=== PATIENT | female | born 1950 | race African-American/Black ===

== ENCOUNTER 2016-10-01 19:37 | Inpatient (IN) | payer OTHER ==
--- NOTE | ~2016-10-01 | DS ---
Discharge Summary [facility] [address] [place]. [address] NAME: NIRAV MAHMOOD : 50 STATUS : DIS IN PAT#: [id number] AGE: 66 ADM/REG DATE : 10/01/16 MR#: [id number] REPORT SERV DATE: 10/05/16 DICTATED BY: FRANCISCO EL DATE: 10/03/16 REPORT STATUS : Draft TRANSCRIBED BY: MODL DATE: 10/03/16 ADMISSION DATE: 10/01/2016 DISCHARGE DATE: 10/03/2016 PRINCIPAL DIAGNOSIS: Acute on chronic diastolic congestive heart failure with cor pulmonale, anasarca. SECONDARY DIAGNOSES: Uncontrolled hypertension, chronic kidney disease stage 4, morbid obesity, atrial fibrillation. HISTORY OF PRESENT ILLNESS: Please see Dr. Gonzalez's dictation of 10/01/2016. HOSPITAL COURSE: Admitted with volume overload, found to be in acute CHF with a normal ejection fraction. The patient received a Bumex infusion with a great deal of volume loss. Medications were adjusted including the discontinuation of Norvasc and change of Lasix to Demadex for enhanced absorption and instructed on elevating her legs as opposed to keeping her legs dependent which she has been doing at home. Bin stockings were provided. Hydralazine was increased. She would follow up with Dr. Amado Chavarria of Nephrology, Dr. Morales of cardiology, and Dr. Livan Hawley, her primary care provider. She will also continue Mevacor, Neurontin, Eliquis, Zoloft. Greater than 30 minutes were spent in care of this patient on discharge planning on discharge day. DICTATED BY: Donald Jones/YUN Francisco El M.D. / [id number] CC: Donald Jones M.D. Vinay Deep Madan, MD Rohit Gupta, M.D.
--- NOTE | ~2016-10-01 | HP ---
History And Physical [place] [id number] [place]. [address] NAME: NIRAV MAHMOOD : 50 STATUS : ADM Raul PAT#: [id number] AGE: 66 ADM/REG DATE : 10/01/16 MR#: [id number] REPORT SERV DATE: 10/01/16 DICTATED BY: LEOLA PINK DATE: 10/01/16 REPORT STATUS : Draft TRANSCRIBED BY: MODL DATE: 10/01/16 DATE OF ADMISSION: 10/01/2016 CHIEF COMPLAINT: A 66-year-old female presenting with shortness of breath and weakness. HISTORY OF PRESENTING ILLNESS: The patient's history was obtained through an interview with the patient, coupled with review of [facility] and [facility] medical records. For the last week, the patient has been having "a cold." She went to see her primary care physician about a week ago, was placed on prednisone, but has not had really any relief from her breathing problems. Over the last 24 hours, her shortness of breath has become quite debilitating. She describes it as dyspnea on exertion in which she cannot even take a few steps now without gasping for breath. She states that she cannot complete a full sentences without becoming short of breath. She has had increasing lower extremity edema and heaviness in her legs. She describes a nonproductive cough, increased wheezing. She states "I felt like something was closing off" in her throat, but there has been no swelling of her tongue or her neck. No nausea or vomiting. No lightheadedness. No change of bowel or bladder habit. She describes slight chest discomfort exacerbated by coughing, a tightness across the middle of her chest, up to an 8/10 severity. REVIEW OF SYSTEMS: Otherwise, a 14-point review of systems was obtained and was negative. PAST MEDICAL HISTORY: 1. Chronic kidney disease stage 4. Baseline creatinine of 2.6 to 3.3. 2. Diastolic congestive heart failure. 3. Stroke, 1990, resulting in right-sided weakness and then early in 2016 resulting in left-sided weakness. 4. Morbid obesity with body mass index of 46. 5. Atrial fibrillation, on Eliquis and aspirin. 6. Pneumonia. 7. COPD/asthma, on home oxygen. 8. Hypertension. 9. Elevated cholesterol. 10.Fatty liver disease. 11.Depression. 12.LEYDI inhibitor-induced angioedema. 13.Dysphagia, seen by Dr. Wisdom. 14.Proteinuria. History And Physical [address] [address] NAME: NIRAV MAHMOOD : 50 STATUS : ADM Raul PAT#: [id number] AGE: 66 ADM/REG DATE : 10/01/16 MR#: [id number] REPORT SERV DATE: 10/01/16 DICTATED BY: LEOLA PINK DATE: 10/01/16 REPORT STATUS : Draft TRANSCRIBED BY: YUN DATE: 10/01/16 15.Fibromyalgia. 16.Gout. PAST SURGICAL HISTORY: 1. Hysterectomy with oophorectomy. 2. Appendectomy. 3. Right knee surgery. 4. Left ankle surgery. ALLERGIES: PENICILLIN, IBUPROFEN, AND LISINOPRIL. SOCIAL HISTORY: The patient has never been a smoker. Does not drink alcohol. She has had secondhand tobacco exposure though. 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 She became a in 2016. She is seen by [facility]. She has no children. She ambulates with a cane. FAMILY HISTORY: Diabetes. Mother at 50 years of age of heart disease. Father at 67 years of age of lung cancer. CURRENT MEDICATIONS: Include Norvasc 5 mg p.o. b.i.d., Eliquis 2.5 mg p.o. b.i.d., aspirin 81 mg p.o. daily, Coreg 12.5 mg p.o. b.i.d., Lasix 60 mg every morning, Neurontin 300 mg at bedtime, guaifenesin, hydralazine 50 mg p.o. b.i.d., sliding-scale insulin, Toujeo insulin 3 units at bedtime, Mevacor 20 mg p.o. daily, Robaxin 500 mg as needed, Percocet p.r.n., Protonix 40 mg p.o. daily, prednisone taper, Zoloft 50 mg at bedtime. PHYSICAL EXAMINATION: VITAL SIGNS: Temperature 98.2, pulse 68, blood pressure 172/103, respiratory rate 23, O2 saturation 97% on 2 L nasal cannula. GENERAL: A pleasant, cooperative female, but she describes distress from underlying shortness of breath and cough. HEENT: Pupils equal, round, and reactive to light. No conjunctival pallor. No scleral icterus. Nares are patent. Oropharynx is clear of obstruction. Moist mucous membranes. NECK: Trachea midline. No thyromegaly. LYMPH: No cervical lymphadenopathy. No supraclavicular lymphadenopathy. RESPIRATORY: The patient has diminished breath sounds at the base of lungs with prominent wet rales dependently. In the upper airways, there are scattered wheezes. The patient has a labored respiratory effort. CARDIOVASCULAR: Regular rate and rhythm. No murmurs, rubs, or gallops. The patient does have deeply pitting lower extremity edema extending up to the thighs symmetrically. ABDOMEN: Central pattern of morbid obesity. Nontender throughout though. No hepatosplenomegaly. DERMATOLOGICAL: Warm and dry extremities. No pallor, no cyanosis. PSYCHIATRIC: Normal affect. Good mood. Alert and oriented x3. LABORATORY DATA: Brain natriuretic peptide 416. Troponin negative. White blood cell count 8.5, hemoglobin 11, hematocrit 33, platelets 193. Sodium 147, potassium 4.0, chloride 113, History And Physical [address] [address] NAME: NIRAV MAHMOOD : 50 STATUS : ADM Raul PAT#: [id number] AGE: 66 ADM/REG DATE : 10/01/16 MR#: [id number] REPORT SERV DATE: 10/01/16 DICTATED BY: LEOLA PINK DATE: 10/01/16 REPORT STATUS : Draft TRANSCRIBED BY: MODL DATE: 10/01/16 bicarb 28, BUN 45, creatinine 2.63, glucose 118. ABG demonstrates a pH of 7.39, a PaCO2 of 42, a PaO2 of 109, a bicarb of 24 on 2 L nasal cannula. ASSESSMENT AND PLAN: 1. Diastolic congestive heart failure exacerbation, but would like to recheck an echocardiogram to define function. Place on IV Bumex drip for now. Nitro paste, beta- sergio. Unable to use LEYDI inhibitor or ARB secondary to angioedema history. 2. Acute bronchitis. Place on IV Solu-Medrol, Duo nebulizers, doxycycline. 3. Chronic kidney disease stage 4. 4. Paroxysmal atrial fibrillation, on Eliquis. Check telemetry. 5. Late effects of stroke. KPL/MODL Leola Pink M.D. / [id number] CC: Donald Jones M.D.
--- NOTE | ~2016-10-01 | CN ---
Consultation Report [facility] [address] [place]. [address] NAME: NIRAV MAHMOOD : 50 STATUS : ADM Raul PAT#: [id number] AGE: 66 ADM/REG DATE : 10/01/16 MR#: [id number] REPORT SERV DATE: 10/02/16 DICTATED BY: FESTUS DIETZ JR. DATE: 10/02/16 REPORT STATUS : Draft TRANSCRIBED BY: MODL DATE: 10/02/16 CARDIOLOGY CONSULT DATE OF CONSULTATION: 10/02/2016 FORMER [employer] SALES EXECUTIVE: Dr. Jeremy Kothari. APPOINTMENT OFFICE: Dr. Andrew [facility], 10/02/2016. REASON FOR CONSULT: Regarding CHF management. HISTORY OF PRESENT ILLNESS: A 66-year-old morbidly obese, female is here with worsening shortness of breath with some exertional chest tightness, unclear why she decompensated, interstitial edema present on chest x-ray with BNP rising from 416 yesterday to 515 today. Low-dose Bumex drip. Weight same as admission. Two troponins negative. BUN and creatinine 50 and 2.5 respectively. Past medical history of hypertensive cardiovascular disease with diastolic left ventricular dysfunction with left atrial enlargement at 4.5 in the past with preserved ejection fraction. History of paroxysmal atrial fibrillation on Eliquis anticoagulation. No clinical recurrence recently. Coronary risk factors are present including hypertension, positive family history of diabetes mellitus type 2, insulin dependent, hyperlipidemia treated. She reports having an unremarkable cardiac catheterization several years ago, she cannot recall details. ALLERGIES: SIGNIFICANT ALLERGIES INCLUDE ANGIOEDEMA WITH LEYDI INHIBITOR. SHE HAS NEVER TRIED AN ARB. MEDICATIONS: Home medication list reviewed. 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 No tobacco, alcohol, or illicit drugs. FAMILY HISTORY: Positive family history, mother of myocardial infarction at age 57. PHYSICAL EXAMINATION: VITAL SIGNS: Blood pressure 168 to 175 over 73 to 90, pulse is 68 and regular, respirations 20, afebrile. HEENT: No xanthelasma. NECK: Internal jugular venous distention at 30 degrees, no thyromegaly, no carotid bruit. LUNGS: A few basilar crackles, otherwise clear. No wheezes today. COR: Soft systolic murmur. Increased pulmonic component of second heart sound. ABD: Soft, nontender, no hepatosplenomegaly, no mass. EXT: 1+ edema bilaterally. Consultation Report [facility] [address] [place]. [address] NAME: NIRAV MAHMOOD : 50 STATUS : ADM Raul PAT#: [id number] AGE: 66 ADM/REG DATE : 10/01/16 MR#: [id number] REPORT SERV DATE: 10/02/16 DICTATED BY: FESTUS DIETZ JR. DATE: 10/02/16 REPORT STATUS : Draft TRANSCRIBED BY: YUN DATE: 10/02/16 MS: Back without spine or costovertebral angle tenderness. NEURO: Symmetric findings. DISCUSSION: Exacerbation of chronic congestive heart failure, previously termed diastolic CHF. Unclear etiology for exacerbation. She describes exertional chest discomfort consistent with angina and has not had evaluation for myocardial ischemia in several years according to her history. Multiple coronary risk factors. She was fed some eggs early this morning. We will keep her n.p.o. and try to get a PET scan late this afternoon. Holiday weekend coming out. 1. If ejection fraction is low, she would qualify for hydralazine isosorbide dinitrate treatment of her heart failure. 2. If positive for ischemia, we will hold her Eliquis and proceed with Wednesday coronary arteriogram, possible PCI. Probable radial access. Thank you for this consultation. LUPE/YUN Festus Dietz Jr., M.D. / [id number] CC: Donald Vickers M.D.
[2016-10-01 18:41] LABS: ALLENS TEST Pos; BE (BASE EXCESS) -0.6 MEQ/L (0 +/- 2.5); HCO3 (ACTUAL BICARBONATE) 24.5 MEQ/L (23-27); INSTRUMENT SERIAL # 8087; PCO2 (CO2 TENSION) 42 MMHG (35-45); PO2 (O2 TENSION) 109 MMHG (79-93); SAMPLE Arterial; pH 7.39 (7.37-7.43)
[2016-10-01 19:02] LABS: BASOPHILS 0.2 %; BASOPHILS ABSOLUTE 0.02 10/3/uL (0.0-0.16); EOSINOPHILS 0.1 %; EOSINOPHILS ABSOLUTE 0.01 10/3/uL (0.0-0.53); HEMATOCRIT 32.9 % (36.0-48.0); HEMOGLOBIN 10.6 g/dL (12.0-16.0); IMMATURE GRANULOCYTES 0.6 %; IMMATURE GRANULOCYTES ABSOLUTE 0.05 10/3/uL (0.0-0.11); LYMPHOCYTES 7.9 %; LYMPHOCYTES ABSOLUTE 0.67 10/3/uL (0.67-4.30); MANUAL DIFF NO %; MEAN CORPUS HGB CONC 32.2 g/dL (32.0-36.0); MEAN CORPUSCULAR HEMOGLOB 28.4 pg (26.0-34.0); MEAN CORPUSCULAR VOLUME 88.2 fL (80-100); MEAN PLATELET VOLUME 11.6 fL (9.2-13.0); MONOCYTES 3.7 %; MONOCYTES ABSOLUTE 0.31 10/3/uL (0.21-1.20); NEUTROPHILS 87.5 %; PLATELET COUNT 193 10/3/uL (150-400); RBC DISTRIBUTION WIDTH 15.6 % (12.0-16.0); RED CELL COUNT 3.73 10/6/uL (4.0-5.6); WHITE BLOOD CELLS 8.5 10/3/uL (4.5-10.5)
[2016-10-01 19:17] LABS: CALCIUM, SERUM 8.5 MG/DL (8.5-10.4); CHEST PAIN PROFILE TAT 0 Hrs 21 Mins; CHLORIDE, SERUM 113 MMOL/L (96-112); CO2 (CARBON DIOXIDE) 28 MMOL/L (24-34); SODIUM, SERUM 147 MMOL/L (135-148); TROPONIN I <0.02 NG/ML (<0.05)
[2016-10-01 19:18] LABS: BUN (BLOOD UREA NITROGEN) 45 MG/DL (6-23); CREATININE 2.63 MG/DL (0.55-1.02); GFR AFRICAN AMERICAN 21 ML/MIN (>=60); GFR NON AFRICAN AMERICAN 18 ML/MIN (>=60); GLUCOSE, SERUM 118 MG/DL (60-99)
[~2016-10-01 19:37] MED LIST: APRES25 PO; APRES50 PO; ARICEPT10 PO; ASA5GR PO; ASAB PO; ASPERCREME TOP; BUM1 PO; BUM2 PO; C5 PO; CAT1 PO; COREG12 PO; COREG25 PO; CYMBALTA60 PO; DUONEB INH; ELIQUIS 2.5 MG2.5 MG PO; ENDOCET1 TA3 PO; FLEXERIL5 MG PO; GGACUDL PO; GRALISE300 MG PO; HALF81 PO; ISORDIL20 PO; KCL20UDL PO; KDUR10 PO; KLOR-CON 1010 MEQ PO; L80 PO; LANTUS; LANTUS SC; LANTUSCART SC; LEVAQUIN750 MG PO; LIPITOR20 PO; LISINOPRIL40 MG PO; LOVASTATIN PO; MEVACOR PO; NORV10 PO; NORV5 PO; NOVOLOG SC; OXYCODONE PO; P10 PO; PCET PO; PERCOCET1 TA4 PO; PLAVIX PO; PR25 PO; PRILOSEC40 MG PO; PRIN10 PO; PRIN20 PO; PROAIR HFA INH; PROTONIX PO; SINGULAIR1 PO; SOMA250 MG OR; SOMATAB PO; SPIRO25 PO; SYMBICORT 160/41 INH INH; T PO; X25 PO; ZESTRIL40 MG PO; ZOL50 PO
[2016-10-01 20:34] LABS: INTERNATIONAL NORMAL RATI 1.2 UNITS (-); PROTIME (NOT ORD) 15.4 SEC (12.0-14.5)
[2016-10-01 20:35] LABS: PARTIAL THROMBO TIME 32.6 SEC (22.5-37.2)
[2016-10-01] MEDS ORDERED: TOUJEO SC (20:35)
[2016-10-01] MEDS ORDERED: NOVOPEN SC (20:35)
[2016-10-01] MEDS ORDERED: NEUR300 PO (20:36)
[2016-10-01] MEDS ORDERED: NORV5 PO (20:36)
[2016-10-01] MEDS ORDERED: COREG12 PO (20:36)
[2016-10-01] MEDS ORDERED: L40 PO (20:37)
[2016-10-01] MEDS ORDERED: METHOC500B PO (20:37)
[2016-10-01] MEDS ORDERED: M-CLEAR WC PO (20:38)
[2016-10-01] MEDS ORDERED: APRES25 PO (20:39)
[2016-10-01] MEDS ORDERED: ZOL50 PO (20:39)
[2016-10-01] MEDS ORDERED: P20 PO (20:40)
[2016-10-01] MEDS ORDERED: ELIQUIS 2.5 MG2.5 MG PO (20:41)
[2016-10-01] MEDS ORDERED: MEVACOR PO (20:44)
[2016-10-01] MEDS ORDERED: PCET PO (20:45)
[2016-10-01] MEDS ORDERED: PROTONIX PO (20:46)
[2016-10-01] MEDS ORDERED: ASAB PO (20:46)
[2016-10-02 04:44] LABS: BASOPHILS 0.1 %; BASOPHILS ABSOLUTE 0.01 10/3/uL (0.0-0.16); EOSINOPHILS 0 %; HEMATOCRIT 32.4 % (36.0-48.0); HEMOGLOBIN 10.4 g/dL (12.0-16.0); IMMATURE GRANULOCYTES 0.8 %; IMMATURE GRANULOCYTES ABSOLUTE 0.07 10/3/uL (0.0-0.11); LYMPHOCYTES 6.9 %; LYMPHOCYTES ABSOLUTE 0.61 10/3/uL (0.67-4.30); MEAN CORPUS HGB CONC 32.1 g/dL (32.0-36.0); MEAN CORPUSCULAR HEMOGLOB 28.7 pg (26.0-34.0); MEAN CORPUSCULAR VOLUME 89.3 fL (80-100); MEAN PLATELET VOLUME 12.4 fL (9.2-13.0); MONOCYTES 1.2 %; MONOCYTES ABSOLUTE 0.11 10/3/uL (0.21-1.20); NEUTROPHILS ABSOLUTE 8.04 10/3/uL (2.02-8.40); PLATELET COUNT 197 10/3/uL (150-400); RBC DISTRIBUTION WIDTH 15.5 % (12.0-16.0); RED CELL COUNT 3.63 10/6/uL (4.0-5.6); WHITE BLOOD CELLS 8.8 10/3/uL (4.5-10.5)
[2016-10-02 04:49] LABS: MANUAL DIFF NO %
[2016-10-02 05:00] LABS: INTERNATIONAL NORMAL RATI 1.3 UNITS (-); PARTIAL THROMBO TIME 33.6 SEC (22.5-37.2); PROTIME (NOT ORD) 16.1 SEC (12.0-14.5)
[2016-10-02 05:06] LABS: T PROTEIN (ELECT)(NOT OR 6.2 G/DL (6.0-8.5)
[2016-10-02 05:09] LABS: ALBUMIN 3.2 G/DL (3.5-5.0); CALCIUM, SERUM 8.4 MG/DL (8.5-10.4); CHLORIDE, SERUM 111 MMOL/L (96-112); CO2 (CARBON DIOXIDE) 26 MMOL/L (24-34); CREATININE 2.48 MG/DL (0.55-1.02); GFR AFRICAN AMERICAN 23 ML/MIN (>=60); GFR NON AFRICAN AMERICAN 20 ML/MIN (>=60); GLOBULIN 3.3 G/DL (2.5-4.1); POTASSIUM, SERUM 3.9 MMOL/L (3.5-5.3); SGOT(AST) 17 U/L (5-40); SGPT(ALT) 27 U/L (5-65); SODIUM, SERUM 143 MMOL/L (135-148); TOTAL BILIRUBIN 0.4 MG/DL (0-1.2); TOTAL PROTEIN 6.5 G/DL (6.0-8.5); TROPONIN I <0.02 NG/ML (<0.05)
[2016-10-02 05:13] LABS: ALKALINE PHOSPHATASE 101 U/L (45-117); BUN (BLOOD UREA NITROGEN) 50 MG/DL (6-23); GLUCOSE, SERUM 177 MG/DL (60-99); ULTRASENSITIVE TSH 0.189 MCIU/ML (0.358-3.740)
[2016-10-02 05:45] LABS: SED RATE 36 MM/HR (0-20)
[2016-10-02 10:05] LABS: PROCALCITONIN <0.05 ng/mL (<0.5)
[2016-10-02 10:35] LABS: FREE T4 0.85 NG/DL (0.76-1.46)
[2016-10-02 11:32] LABS: A/G 1.48 RATIO (0.9-2.10); ALB RELATIVE % 59.7 % (60.0-89.0); ALPHA 1 (ELECTRO) 0.17 GM/DL (0.1-0.4); ALPHA 1 RELAT % (NOT ORD) 2.8 % (1.0-4.0); ALPHA 2 (ELECTRO) 0.95 GM/DL (0.5-1.10); ALPHA 2 RELAT % 15.4 % (4.5-26.0); BETA GLOBULIN (SPE) 0.63 GM/DL (0.60-1.30); BETA RELATIVE % 10.2 % (9.0-22.0); GAMMA GLOBULIN (SPE) 0.74 G/DL (0.70-1.60); GAMMA RELAT % 11.9 % (6.0-22.0)
[2016-10-02 20:24] LABS: CREATININE, URINE 39.9 MG/DL
[2016-10-03 05:12] LABS: BASOPHILS 0 %; EOSINOPHILS 0 %; HEMATOCRIT 32.3 % (36.0-48.0); HEMOGLOBIN 10.1 g/dL (12.0-16.0); IMMATURE GRANULOCYTES 0.8 %; IMMATURE GRANULOCYTES ABSOLUTE 0.09 10/3/uL (0.0-0.11); LYMPHOCYTES 9.2 %; LYMPHOCYTES ABSOLUTE 1.07 10/3/uL (0.67-4.30); MEAN CORPUS HGB CONC 31.3 g/dL (32.0-36.0); MEAN CORPUSCULAR VOLUME 89.5 fL (80-100); MEAN PLATELET VOLUME 12.1 fL (9.2-13.0); MONOCYTES 8.6 %; NEUTROPHILS 81.4 %; NEUTROPHILS ABSOLUTE 9.42 10/3/uL (2.02-8.40); PLATELET COUNT 195 10/3/uL (150-400); RBC DISTRIBUTION WIDTH 15.6 % (12.0-16.0); RED CELL COUNT 3.61 10/6/uL (4.0-5.6); WHITE BLOOD CELLS 11.6 10/3/uL (4.5-10.5)
[2016-10-03 05:14] LABS: MANUAL DIFF NO %
[2016-10-03 05:27] LABS: CALCIUM, SERUM 7.7 MG/DL (8.5-10.4); CHLORIDE, SERUM 109 MMOL/L (96-112); CO2 (CARBON DIOXIDE) 25 MMOL/L (24-34); GFR AFRICAN AMERICAN 17 ML/MIN (>=60); GFR NON AFRICAN AMERICAN 15 ML/MIN (>=60); GLUCOSE, SERUM 169 MG/DL (60-99); POTASSIUM, SERUM 3.7 MMOL/L (3.5-5.3); SODIUM, SERUM 143 MMOL/L (135-148)
[2016-10-03 05:29] LABS: BUN (BLOOD UREA NITROGEN) 62 MG/DL (6-23); CREATININE 3.12 MG/DL (0.55-1.02)
[2016-10-03] MEDS ORDERED: DEMA100 PO (15:39)
[2017-01-25] MEDS ORDERED: APRES50 PO (15:00)
[2017-01-25] MEDS ORDERED: NOVOLOG SC (15:01)
[2017-01-25] MEDS ORDERED: COREG12 PO (15:01)
[2017-01-25] MEDS ORDERED: NORV5 PO (15:01)
[2017-01-25] MEDS ORDERED: ELIQUIS 2.5 MG2.5 MG PO (15:01)
[2017-01-25] MEDS ORDERED: ALBUTEROL0.083 % INH (15:01)
[2017-01-25] MEDS ORDERED: TOUJEO SC (15:01)
[2017-01-25] MEDS ORDERED: B121000P IM (15:02)
[2017-01-25] MEDS ORDERED: NEUR300 PO (15:02)
[2017-01-25] MEDS ORDERED: PROAIR HFA INH (15:02)
[2017-01-25] MEDS ORDERED: PROTONIX PO (15:02)
[2017-01-25] MEDS ORDERED: CAT1 PO (15:03)
[2017-02-01] MEDS ORDERED: DEMA100 PO (15:22)
== END 2016-10-03 16:19 | disposition home or self-care (01) | DRG 291 ==
LOC: ER 19:37 → CDU1 21:01 → CDU2 21:50
PROVIDERS: Emergency Medicine; Hospitalist; Internal Medicine
DX: I13.0 Hypertensive heart and chronic kidney disease with heart failure and stage 1 through stage 4 chronic kidney disease, or unspecified chronic kidney disease (principal); I50.33 Acute on chronic diastolic (congestive) heart failure; N17.9 Acute kidney failure, unspecified; E11.22 Type 2 diabetes mellitus with diabetic chronic kidney disease; I69.354 Hemiplegia and hemiparesis following cerebral infarction affecting left non-dominant side; E11.65 Type 2 diabetes mellitus with hyperglycemia; J44.0 Chronic obstructive pulmonary disease with (acute) lower respiratory infection; R13.10 Dysphagia, unspecified; N18.4 Chronic kidney disease, stage 4 (severe); Z68.43 Body mass index [BMI] 50.0-59.9, adult; E66.01 Morbid (severe) obesity due to excess calories; J20.9 Acute bronchitis, unspecified; I48.0 Paroxysmal atrial fibrillation; K76.0 Fatty (change of) liver, not elsewhere classified; Z79.4 Long term (current) use of insulin; Z88.8 Allergy status to other drugs, medicaments and biological substances
CPT/HCPCS: 36600; 71010; 78492; 80048; 80053; 82570; 82805; 82962; 83735; 83880; 84145; 84155; 84156; 84165; 84439; 84443; 84484; 85025; 85610; 85652; 85730; 93005; 93017; 94640; 96374; 96375; 99285; A9270-GY; A9555; J0360; J2405; J2785; J2920; J2930